=== PATIENT | female | born 1995 | race American Indian/Alaskan Native ===

== ENCOUNTER 2018-03-31 12:55 | Outpatient (CLI) | payer MEDICAID ==
[2018-03-31] MEDS ORDERED: LACTATED RINGERS 500 ML IV ONE (14:22)
[2018-03-31 14:31] VITALS: BP 104/63
[2018-03-31 14:45] LABS: Bilirubin,Urine NEG (Negative); Blood,Urine NEG (Negative); Color,Urine Straw (Yellow); Protein,Urine <15 mg/dL mg/dL (Negative); RBC,Urine < 1.0 /HPF (0.0-6.0); Urobilinogen,Urine < 2.0 mg/dL (<2.0)
== END 2018-03-31 15:07 | disposition home or self-care (01) ==
LOC: TRG 12:55
PROVIDERS: ATTEND Obstetrics & Gynecology
DX: O26.892 Other specified pregnancy related conditions, second trimester (principal); R10.9 Unspecified abdominal pain; Z3A.20 20 weeks gestation of pregnancy
CPT/HCPCS: 59025; 81001

== ENCOUNTER 2018-08-04 09:57 | Inpatient (IN) | payer MEDICAID ==
[2018-08-04] MEDS ORDERED: BRETHINE SUB-Q PRN (10:19)
[2018-08-04] MEDS ORDERED: APRESOLINE IV PRN (10:19)
[2018-08-04] MEDS ORDERED: SUBLIMAZE IV PRN (10:19)
[2018-08-04] MEDS ORDERED: XYLOCAINE 2% INFILTRATI ONE (10:19)
[2018-08-04] MEDS ORDERED: MINERAL OIL PO PRN (10:19)
[2018-08-04] MEDS ORDERED: MAGNESIUM SULFATE 4GM/100ML 4 GM/100 ML BAG IV ONE (10:19)
--- NOTE | 2018-08-04 10:26 | History and Physical Report ---
History of Present Illness Date of examination: 08/04/18 Chief complaint: Contractions History of present illness: EDC Calculations LMP: 08/13/2018 Past History : 1 Term Births: 0 Premature Births: 0 Living Children: 0 Para: 0 Mult. Births: 0 Prev : 0 Prev. attempt? 0 Aborta: 0 Elect. Ab: 0 Spont. 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 of genital herpes: no Partner hx. of genital herpes: no Rash, Viral, or Febrile illness since last LMP? no Varicella/Chicken Pox Status: Immunized TB Risk: no Genetic History Congenital Heart Defect: Mom: no Dad: no Fred Disease: Mom: no Dad: no Thalassemia Mom: no Dad: no Neural Tube Defect Mom: no Dad: no Down's Syndrome Mom: no Dad: no Bryce-Sachs Mom: no Dad: no Sickle Cell Disease/Trait Mom: no Dad: no Hemophilia Mom: no Dad: no Muscular Dystrophy Mom: no Dad: no Cystic Fibrosis Mom: no Dad: no [place] Chorea Mom: no Dad: no Mental Retardation Mom: no Dad: no Fragile X Mom: no Dad: no Other Genetic/Chromosomal Disorder Mom: no Dad: no Child w/other defect Mom: no Dad: no Enviromental Exposures Xray Exposure: no Medication, drug, or alcohol use since LMP: no Chemical/Other Exposure: no Exposure to Cat Liter: no Hx of Parvovirus (Fifth Disease): no Occupational Exposure to Children: none Active Medications (reviewed today): DIFLUCAN 150 MG ORAL TABLET (FLUCONAZOLE) 1 tab weekly Current Allergies (reviewed today): No known allergies Past History Past Medical History: other (see HPI) Past Surgical History: other (see HPI) 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 (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) - Obstetrical History Expected Date of Delivery: 08/13/18 Actual Gestation: 38 Week(s) 5 Day(s) : 1 Para: 0 Hx # Term Pregnancies: 0 Number of Pregnancies: 0 Spontaneous Abortions: 0 Induced : 0 Number of Living Children: 0 Medications and Allergies Allergies Allergy/AdvReac Type Severity Reaction Status Date / Time No Known Allergies Allergy Unverified 03/31/18 13:21 Review of Systems All systems: negative Eyes: blurred vision, other (seeing spots/flashing x 2 days) Neurological: headaches - Physical Exam Breasts: Positive: normal Cardiovascular: Regular rate Lungs: Positive: Clear to auscultation, Normal air movement Abdomen: Positive: normal appearance, soft Genitourinary (Female): Positive: normal external genitalia, normal perenium Vulva: both: normal Vagina: Positive: normal moisture Uterus: Positive: normal size, normal contour Anus/Rectum: Positive: normal perianal skin Extremities: Positive: normal - Obstetrical FHR: auscultation normal, category 1 Uterine Contraction Monitor Mode: Internal Cervical Dilatation: 6 Cervical Effacement Percentage: 100 station: 0 Uterine Contraction Frequency (min): 2-4 Uterine Contraction Duration: 60 Uterine Contraction Pattern: Regular Uterine Tone Measurement Phase: Contraction Uterine Contraction Intensity: Mild Results Result Diagrams: 08/04/18 10:40 08/04/18 10:40 All other labs normal. Assessment and Plan Patient admitted in labor, GBS NEG, b/p noted 194/113 in triage. Patient reports seeing flashes/spots x2 days and RICH x1 day. Ptl 118, AST/ALT normal. waiting on UA. Advised patient she has pre-eclampsia with severe symptoms. Advised she is at risk for having stroke/seizure d/t elevated b/p and only cure is delivery. Mag bolus is complete and is now infusing @ 2gm/hr for neuro protection and she received one dose of hydralizine x 1 dose. Current blood pressure is 161/86. She is refusing epidural (discussed pain increases b/p and the epidural is advised instead of multiple doses of IV sedation.) She is also refusing pitocin to expedite delivery while patient is stable at this time. pt requests for AROM - ISE and IUPC placed without difficulty. Bother functioning well. Patient's mother, sister and FOC are all at the bedside, very supportive. Admission orders in EMR. Dr. Lazaro has been consulted. - Patient Problems (1) 38 weeks gestation of Current Visit: Yes Status: Acute (2) Active labor at term Current Visit: Yes Status: Acute (3) Pre-eclampsia Current Visit: Yes Status: Acute Qualifiers: Trimester: third trimester Qualified Code(s): O14.93 - Unspecified pre- eclampsia, third trimester (4) Thrombocytopenia Current Visit: Yes Status: Acute
[2018-08-04] MEDS ORDERED: PITOCin/NS 20 UNIT/1000ML DRIP 20 UNITS/1,000 ML BAG IV SCH (11:00)
[2018-08-04] MEDS ORDERED: LACTATED RINGERS 1,000 ML IV SCH ×2 (11:00)
[2018-08-04] MEDS ORDERED: PITOCin/NS 30 UNIT/500ML 30 UNITS/500 ML BAG IV SCH (11:00)
[2018-08-04 11:03] LABS: Hematocrit 35.4 % (30.3-42.9); Hemoglobin 11.3 gm/dl (10.1-14.3); Mean Corpuscular HGB Conc 32 % (30-34); Mean Corpuscular Volume 79 fl (79-97); Platelet Count 118 K/mm3 (140-440); Red Blood Count 4.49 M/mm3 (3.65-5.03); Red Cell Distribution Width 19.3 % (13.2-15.2)
[2018-08-04 11:09] LABS: Mean Corpuscular Hemoglobin 25 pg (28-32)
[2018-08-04 11:22] LABS: Alanine Aminotransferase 18 units/L (7-56)
[2018-08-04] MEDS: MAGNESIUM SULFATE 40GM/1000ML 40 GM/1,000 ML BAG IV SCH (11:48)
[2018-08-04] MEDS ORDERED: APRESOLINE IV ONE (13:10)
--- NOTE | 2018-08-04 13:16 | Event Note ---
Date: 08/04/18 Pt is with BP in the sever ranges. Will give BP meds at this time. RN advised that she is to call provider with consecutive bps >160s/105s or higher and more meds would be given at this time. Pt currently is also on Magnesium Sulfate for sz protection. Report given to me by ANA Retana.
--- NOTE | 2018-08-04 14:28 | Progress Note ---
Assessment and Plan received call from nurse that patient was 10/100/+2, upon my exam patient had cervix all the way around that was not reducible. Patient turned to left side and encouraged to refrain from pushing as to not cause cervix to swell. some early variables noted, FHT CAT 1 - Patient Problems (1) 38 weeks gestation of Current Visit: Yes Status: Acute (2) Active labor at term Current Visit: Yes Status: Acute (3) Pre-eclampsia Current Visit: Yes Status: Acute Qualifiers: Trimester: third trimester Qualified Code(s): O14.93 - Unspecified pre- eclampsia, third trimester (4) Thrombocytopenia Current Visit: Yes Status: Acute Subjective - Subjective Date of service: 08/04/18 Principal diagnosis: IUP @ 38w5, Labor and pre-e, thrombocytopenia Interval history: EDC Calculations LMP: 08/13/2018 Past History : 1 Term Births: 0 Premature Births: 0 Living Children: 0 Para: 0 Mult. Births: 0 Prev : 0 Prev. attempt? 0 Aborta: 0 Elect. Ab: 0 Spont. 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 of genital herpes: no Partner hx. of genital herpes: no Rash, Viral, or Febrile illness since last LMP? no Varicella/Chicken Pox Status: Immunized TB Risk: no Genetic History Congenital Heart Defect: Mom: no Dad: no Fred Disease: Mom: no Dad: no Thalassemia Mom: no Dad: no Neural Tube Defect Mom: no Dad: no Down's Syndrome Mom: no Dad: no Bryce-Sachs Mom: no Dad: no Sickle Cell Disease/Trait Mom: no Dad: no Hemophilia Mom: no Dad: no Muscular Dystrophy Mom: no Dad: no Cystic Fibrosis Mom: no Dad: no [place] Chorea Mom: no Dad: no Mental Retardation Mom: no Dad: no Fragile X Mom: no Dad: no Other Genetic/Chromosomal Disorder Mom: no Dad: no Child w/other defect Mom: no Dad: no Enviromental Exposures Xray Exposure: no Medication, drug, or alcohol use since LMP: no Chemical/Other Exposure: no Exposure to Cat Liter: no Hx of Parvovirus (Fifth Disease): no Occupational Exposure to Children: none Active Medications (reviewed today): DIFLUCAN 150 MG ORAL TABLET (FLUCONAZOLE) 1 tab weekly Current Allergies (reviewed today): No known allergies Patient reports: loss of fluid, movement normal, contractions Objective - Vital Signs Vital Signs: Vital Signs - 12hr 08/04/18 08/04/18 08/04/18 10:15 10:20 10:42 Temperature 98.6 F Pulse Rate 74 85 74 Respiratory 20 20 Rate Blood Pressure 188/116 Blood Pressure 194/113 189/104 [Left] 08/04/18 08/04/18 08/04/18 11:16 11:25 11:34 Temperature Pulse Rate 82 93 H 88 Respiratory Rate Blood Pressure 196/91 152/91 167/104 Blood Pressure [Left] 08/04/18 08/04/18 08/04/18 11:45 11:54 12:04 Temperature Pulse Rate 94 H 92 H 99 H Respiratory Rate Blood Pressure 168/102 138/83 145/79 Blood Pressure [Left] 08/04/18 08/04/18 08/04/18 12:14 12:25 12:35 Temperature Pulse Rate 99 H 104 H 101 H Respiratory Rate Blood Pressure 155/86 161/86 144/85 Blood Pressure [Left] 08/04/18 08/04/18 08/04/18 12:45 12:56 13:05 Temperature Pulse Rate 127 H 100 H 86 Respiratory Rate Blood Pressure 172/105 163/100 160/92 Blood Pressure [Left] 08/04/18 08/04/18 08/04/18 13:14 13:24 13:34 Temperature Pulse Rate 92 H 112 H 110 H Respiratory Rate Blood Pressure 168/105 174/108 161/103 Blood Pressure [Left] 08/04/18 08/04/18 08/04/18 13:44 13:55 14:04 Temperature Pulse Rate 121 H 114 H 104 H Respiratory Rate Blood Pressure 153/88 151/72 139/69 Blood Pressure [Left] 08/04/18 14:15 Temperature Pulse Rate 104 H Respiratory Rate Blood Pressure 135/65 Blood Pressure [Left] - Exam Breasts: normal Cardiovascular: Regular rate Lungs: Clear to auscultation Abdomen: Present: normal appearance, soft Vulva: both: normal Uterus: Present: normal FHR: category 1 Uterine Contraction Monitor Mode: Internal Cervical Dilatation: 7.5 Cervical Effacement Percentage: 90 station: +2 Uterine Contraction Frequency (min): 4 Uterine Contraction Duration: 60 Uterine Contraction Pattern: Regular Uterine Tone Measurement Phase: Contraction Uterine Contraction Intensity: Moderate Extremities: edema Deep Tendon Reflex Grade: Normal but brisk +3 - Labs Labs: Abnormal Labs 08/04/18 08/04/18 10:40 10:40 MCH 25 L RDW 19.3 H Plt Count 118 L Lactate Dehydrogenase 432 H Laboratory Results - last 24 hr 08/04/18 08/04/18 08/04/18 10:40 10:40 10:40 WBC 8.1 RBC 4.49 Hgb 11.3 Hct 35.4 MCV 79 MCH 25 L MCHC 32 RDW 19.3 H Plt Count 118 L Creatinine 0.8 Estimated GFR > 60 Uric Acid AST ALT Lactate Dehydrogenase RPR Nonreactive Blood Type Antibody Screen 08/04/18 08/04/18 08/04/18 10:40 10:40 10:40 WBC RBC Hgb Hct MCV MCH MCHC RDW Plt Count Creatinine Estimated GFR Uric Acid 7.4 AST 37 ALT 18 Lactate Dehydrogenase 432 H RPR Blood Type B POSITIVE Antibody Screen Negative
[2018-08-04] MEDS ORDERED: NARCAN 2 MG/2 ML IV PRN (16:54)
--- NOTE | 2018-08-04 16:54 | Anesthesia Consultation ---
Anesthesia Consult and Med Hx Date of service: 08/04/18 - Airway Anesthetic Teeth Evaluation: Good ROM Head & Neck: Adequate Mental/Hyoid Distance: Adequate Mallampati Class: Class II Intubation Access Assessment: Good - Pulmonary Exam CTA: Yes - Cardiac Exam Cardiac Exam: No Murmur - Pre-Operative Health Status ASA Pre-Surgery Classification: ASA2 Proposed Anesthetic Plan: Epidural - Pulmonary Hx Asthma: No COPD: No Hx Pneumonia: No - Cardiovascular System Hx Hypertension: No - Central Nervous System Hx Seizures: No Hx Psychiatric Problems: No - Endocrine Hx Renal Disease: No Hx End Stage Renal Disease: No Hx Hypothyroidism: No Hx Hyperthyroidism: No - Hematic Hx Anemia: No Hx Sickle Cell Disease: No - Other Systems Hx Alcohol Use: No
[2018-08-04] MEDS ORDERED: fentaNYL-BUPIV 2 MCG/ML-0.125% 200 MCG/100 ML BAG EPIDURAL SCH (17:00)
[2018-08-04 18:17] LABS: Bilirubin,Urine NEG (Negative); Blood,Urine SM (Negative); Color,Urine Straw (Yellow); Urobilinogen,Urine < 2.0 mg/dL (<2.0)
[2018-08-04] MEDS ORDERED: LANSINOH TP PRN (19:49)
[2018-08-04] MEDS ORDERED: DULCOLAX PR PRN (19:49)
[2018-08-04] MEDS ORDERED: TYLENOL PO PRN (19:49)
[2018-08-04] MEDS ORDERED: ZOFRAN IV PRN (19:49)
[2018-08-04] MEDS ORDERED: BENADRYL PO PRN (19:49)
[2018-08-04] MEDS ORDERED: SODIUM CHLORIDE FLUSH SYRINGE 10 ML IV SCH (20:00)
--- NOTE | 2018-08-04 20:08 | Procedure Note ---
OB Delivery Note - Delivery Date of Delivery: 08/04/18 (late entry) Surgeon: JENNIFER SOUTH Estimated blood loss: other (400cc) - Vaginal Delivery presentation: vertex Delivery position: OP (direct) Intrapartum events: mult.variable deceleratio (deep at times going to the60s to 90s) Delivery induction: none Delivery augmentation: rupture of membranes, pitocin Delivery monitor: external FHT, external uterine, internal FHT, internal uterine Route of delivery: Delivery placenta: spontaneous Delivery cord: nuchal cord (times one tight clamped x 2 and easily reduced) Episiotomy: midline Delivery laceration: 3rd degree (partial 3rd degree extension) Delivery repair: vicryl (3-0 ) Anesthesia: intravenous, epidural Delivery comments: Delivery as above. delivered direct OP and cord was clamped and cut as stated above. Infant taken to [place] warm with waiting resp and NICU staff. MLE with partial third degree extension repaired in usual fashion. Placenta delivered spontaneously intact. Mother and infant stable in LDR. - Infant A at 1 minute: 8 at 5 minutes: 9 Gender: Male (5lbs 11oz)
[2018-08-04] MEDS: NORCO 5/325 PO PRN (21:45)
[2018-08-04] MEDS: TUCKS PAD TP PRN (21:49)
[2018-08-05] MEDS: MOTRIN PO SCH ×4 (00:15→20:03)
[2018-08-05] MEDS ORDERED: PITOCin/NS 20 UNIT/1000ML DRIP 20 UNITS/1,000 ML BAG IV SCH (01:00)
[2018-08-05] MEDS: MAGNESIUM SULFATE 40GM/1000ML 40 GM/1,000 ML BAG IV SCH (05:19)
[2018-08-05 08:32] LABS: Hematocrit 26.3 % (30.3-42.9); Hemoglobin 8.6 gm/dl (10.1-14.3)
--- NOTE | 2018-08-05 10:18 | Progress Note ---
Assessment and Plan patient doing well, denies RICH, visual changes or epigastric pain. Fundus firm, lochia scant. post del H&H 8.6/26.3 (asymptomatic, anemia from blood loss, acute.) Adequate urine output in samuels, b/p 140-150's/80-90's. Last mag level 7.4, mag sulfate decreased to 1gm/hr. will continue mag sulfate until 1999. Will start labetalol 200mg BID. well. Will continue pathway. - Patient Problems (1) Pre-eclampsia Current Visit: Yes Status: Acute Qualifiers: Trimester: third trimester Qualified Code(s): O14.93 - Unspecified pre- eclampsia, third trimester (2) Thrombocytopenia Current Visit: Yes Status: Acute (3) (spontaneous vaginal delivery) Current Visit: Yes Status: Acute (4) Anemia associated with acute blood loss Current Visit: Yes Status: Acute Subjective - Subjective Date of service: 08/05/18 Principal diagnosis: day #1 s/p ; pre-e Interval history: EDC Calculations LMP: 08/13/2018 Past History : 1 Term Births: 0 Premature Births: 0 Living Children: 0 Para: 0 Mult. Births: 0 Prev : 0 Prev. attempt? 0 Aborta: 0 Elect. Ab: 0 Spont. 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 of genital herpes: no Partner hx. of genital herpes: no Rash, Viral, or Febrile illness since last LMP? no Varicella/Chicken Pox Status: Immunized TB Risk: no Genetic History Congenital Heart Defect: Mom: no Dad: no Fred Disease: Mom: no Dad: no Thalassemia Mom: no Dad: no Neural Tube Defect Mom: no Dad: no Down's Syndrome Mom: no Dad: no Bryce-Sachs Mom: no Dad: no Sickle Cell Disease/Trait Mom: no Dad: no Hemophilia Mom: no Dad: no Muscular Dystrophy Mom: no Dad: no Cystic Fibrosis Mom: no Dad: no [place] Chorea Mom: no Dad: no Mental Retardation Mom: no Dad: no Fragile X Mom: no Dad: no Other Genetic/Chromosomal Disorder Mom: no Dad: no Child w/other defect Mom: no Dad: no Enviromental Exposures Xray Exposure: no Medication, drug, or alcohol use since LMP: no Chemical/Other Exposure: no Exposure to Cat Liter: no Hx of Parvovirus (Fifth Disease): no Occupational Exposure to Children: none Active Medications (reviewed today): DIFLUCAN 150 MG ORAL TABLET (FLUCONAZOLE) 1 tab weekly Current Allergies (reviewed today): No known allergies Patient reports: appetite normal, pain well controlled, ambulating normally, no nauseated [facility]: doing well, nursing well Objective - Vital Signs Latest vital signs: Vital Signs Temp Pulse Resp BP BP Pulse Ox 08/05/18 06:21 87 143/81 97 08/05/18 05:07 18 08/05/18 04:32 97.9 F 86 18 153/90 97 08/05/18 04:07 20 08/05/18 02:26 87 150/84 08/05/18 00:24 98.4 F 87 153/96 08/05/18 00:15 18 08/04/18 22:45 18 08/04/18 21:45 20 08/04/18 21:23 98.6 F 104 H 20 151/94 151/94 98 08/04/18 20:45 93 H 159/81 08/04/18 20:37 104 H 215/89 08/04/18 20:20 97.6 F 18 08/04/18 19:33 102 H 155/99 08/04/18 19:03 108 H 144/67 08/04/18 18:52 41 L 90 08/04/18 18:50 117 H 100 08/04/18 18:45 110 H 100 08/04/18 18:40 109 H 100 08/04/18 18:35 117 H 99 08/04/18 18:33 129 H 136/71 08/04/18 18:30 131 H 99 08/04/18 18:05 82 153/81 08/04/18 17:35 83 136/77 08/04/18 17:29 90 135/78 08/04/18 17:24 99 H 129/82 09/14/18 17:18 90 141/73 08/04/18 17:13 96 H 121/58 18 17:08 99 H 124/65 18 17:03 100 H 119/68 18 16:58 103 H 137/68 18 16:53 98 H 141/71 08/04/18 16:44 100 H 154/90 18 16:40 104 H 156/91 08/04/18 16:34 106 H 150/95 08/04/18 16:29 101 H 156/90 08/04/18 16:14 105 H 150/97 08/04/18 16:04 108 H 158/96 08/04/18 15:54 96 H 150/89 08/04/18 15:44 99 H 145/82 08/04/18 15:35 96 H 151/87 08/04/18 15:24 98 H 144/92 08/04/18 15:14 89 135/69 08/04/18 15:04 100 H 143/74 08/04/18 14:54 111 H 142/70 08/04/18 14:44 110 H 135/63 18 14:34 105 H 133/65 18 14:25 105 H 135/65 08/04/18 14:15 104 H 135/65 08/04/18 14:04 104 H 139/69 08/04/18 13:55 114 H 151/72 08/04/18 13:44 121 H 153/88 08/04/18 13:34 110 H 161/103 08/04/18 13:24 112 H 174/108 08/04/18 13:14 92 H 168/105 08/04/18 13:05 86 160/92 08/04/18 12:56 100 H 163/100 08/04/18 12:45 127 H 172/105 08/04/18 12:35 101 H 144/85 08/04/18 12:25 104 H 161/86 08/04/18 12:14 99 H 155/86 08/04/18 12:04 99 H 145/79 08/04/18 11:54 92 H 138/83 08/04/18 11:45 94 H 168/102 08/04/18 11:34 88 167/104 08/04/18 11:25 93 H 152/91 08/04/18 11:16 82 196/91 08/04/18 10:42 74 188/116 08/04/18 10:20 85 20 189/104 08/04/18 10:15 98.6 F 74 20 194/113 Intake and Output 08/04/18 08/05/18 08/05/18 23:59 07:59 15:59 Intake Total 777.917 Output Total 100 1900 Balance -100 -1122.083 Intake: IV 437.917 MAGNESIUM SULFATE 40GM/ 437.917 1000ML 40 gm In 1,000 ml @ 1 GM/HR 25 mls/hr IV DIRECT OMAR Rx#:[id number] Oral 240 Intake, Free Water 100 Output: Urine 100 1900 Indwelling Catheter 100 1900 Other: Total, Intake Amount 240 Total, Output Amount 100 1000 Estimated Blood Loss 400 - Exam Breasts: Present: normal, Cardiovascular: Present: Regular rate Lungs: Present: Clear to auscultation, Normal air movement Abdomen: Present: normal appearance, soft Vulva: both: normal Uterus: Present: normal, firm, fundal height at umbilicus Extremities: Present: normal Deep Tendon Reflex Grade: Normal +2 Incision: Present: normal, dry, intact - Labs Labs: Abnormal lab results 08/04/18 08/04/18 08/04/18 Range/Units 10:40 10:40 17:44 Hgb (10.1-14.3) gm/dl Hct (30.3-42.9) % MCH 25 L (28-32) pg RDW 19.3 H (13.2-15.2) % Plt Count 118 L (140-440) K/mm3 Magnesium 6.10 H (1.7-2.3) mg/dL Lactate Dehydrogenase 432 H (91-180) units/L 08/04/18 08/05/18 08/05/18 Range/Units 22:14 05:23 08:07 Hgb (10.1-14.3) gm/dl Hct (30.3-42.9) % MCH (28-32) pg RDW (13.2-15.2) % Plt Count (140-440) K/mm3 Magnesium 6.40 H 7.60 H 7.40 H (1.7-2.3) mg/dL Lactate Dehydrogenase (91-180) units/L 08/05/18 Range/Units 08:07 Hgb 8.6 L (10.1-14.3) gm/dl Hct 26.3 L D (30.3-42.9) % MCH (28-32) pg RDW (13.2-15.2) % Plt Count (140-440) K/mm3 Magnesium (1.7-2.3) mg/dL Lactate Dehydrogenase (91-180) units/L
[2018-08-05] MEDS: NORMODYNE PO SCH ×2 (11:00→21:40)
[2018-08-05] MEDS ORDERED: NACL 0.9% 1000 ML 1,000 ML IV SCH (14:00)
[2018-08-05] MEDS ORDERED: NACL 0.9% 1000 ML 1,000 ML ONE (15:52)
[2018-08-05] MEDS: NORCO 5/325 PO PRN (15:55)
[2018-08-05] MEDS: FEOSOL PO SCH (21:38)
[2018-08-06] MEDS: NORCO 5/325 PO PRN (05:37)
[2018-08-06] MEDS: MOTRIN PO SCH ×2 (05:37→13:01)
[2018-08-06] MEDS: NORMODYNE PO SCH (10:47)
[2018-08-06] MEDS: FEOSOL PO SCH (10:47)
--- NOTE | 2018-08-06 12:24 | Discharge Summary ---
Providers - Providers Date of Admission: 08/04/18 09:58 Date of discharge: 08/06/18 (desires d/c home today) Attending physician: JENNIFER SOUTH 08/04/18 19:51 Consult to [employer]er [CONS] Routine Reason For Exam: assistance with , SNS Primary care physician: JENNIFER SOUTH Hospitalization Reason for admission: Labor and pre-eclampsia Condition: Good Pertinent studies: post delivery H&H 8.6/26.3 - asymptomatic anemia from acute blood loss. Procedures: vaginal Hospital course: vaginal and course complicated by pre-e Disposition: DC-01 TO HOME OR SELFCARE - Discharge Diagnoses (1) Pre-eclampsia Status: Acute Qualifiers: Trimester: third trimester Qualified Code(s): O14.93 - Unspecified pre- eclampsia, third trimester (2) Thrombocytopenia Status: Acute (3) (spontaneous vaginal delivery) Status: Acute (4) Anemia associated with acute blood loss Status: Acute Core Measure Documentation - Palliative Care Palliative Care/ Comfort Measures: Not Applicable - Core Measures Any of the following diagnoses?: none Exam - Constitutional Vitals: Temp Pulse Resp BP Pulse Ox 98.7 F 78 16 129/76 97 08/06/18 00:20 08/06/18 00:20 08/06/18 00:20 08/06/18 00:20 08/05/18 06:21 General appearance: Present: no acute distress, well-nourished - EENT Eyes: Present: PERRL ENT: hearing intact, clear oral mucosa - Neck Neck: Present: supple, normal ROM - Respiratory Respiratory effort: normal Respiratory: bilateral: CTA - Cardiovascular Heart Sounds: Present: S1 & S2. Absent: rub, click - Extremities Extremities: pulses symmetrical, No edema Peripheral Pulses: within normal limits - Abdominal General gastrointestinal: Present: soft, non-tender, non-distended, normal bowel sounds Female genitourinary: Present: normal - Integumentary Integumentary: Present: clear, warm, dry - Musculoskeletal Musculoskeletal: gait normal, strength equal bilaterally - Psychiatric Psychiatric: appropriate mood/affect, intact judgment & insight - Neurologic Neurologic: CNII-XII intact, moves all extremities - Additional findings Additional findings: , lochia scant, fundus firm, denies RICH, visual changes or epigastric pain. Plan Activity: no restrictions Diet: regular Follow up with: JENNIFER SOUTH MD [Primary Care Provider] - 7 Days (Congratulations! Please call [phone] to schedule your son's circumcision and your blood pressure check in 1 week. Bring EMLA cream to your son's visit and await further teaching. Call for any questions or concerns. ) Prescriptions: Ferrous Sulfate [Feosol 325 MG tab] 325 mg PO BID #90 tablet Ibuprofen [Motrin 800 MG tab] 800 mg PO Q8HR PRN #30 tablet PRN Reason: Pain Labetalol [Normodyne TAB] 200 mg PO BID #60 tablet Lidocain2.5%/Prilocai2.5% [Emla] 5 gm TP ONCE PRN #1 tube PRN Reason: Pain
[2018-08-06] MEDS: TUCKS PAD TP PRN (13:00)
[2018-08-06 20:01] VITALS: BP 132/81
== END 2018-08-06 14:10 | disposition home or self-care (01) | DRG 988 ==
LOC: TRG 09:57 → LD 09:58 → TRG 10:43 → OB 20:58
PROVIDERS: ADMIT Obstetrics & Gynecology; ATTEND Obstetrics & Gynecology
PROC: 10E0XZZ Delivery of Products of Conception, External Approach (ICD-10-PCS; principal; 2018-08-04)
PROC: 0DQR0ZZ Repair Anal Sphincter, Open Approach (ICD-10-PCS; 2018-08-04)
PROC: 10907ZC Drainage of Amniotic Fluid, Therapeutic from Products of Conception, Via Natural or Artificial Opening (ICD-10-PCS; 2018-08-04)
PROC: 10H07YZ Insertion of Other Device into Products of Conception, Via Natural or Artificial Opening (ICD-10-PCS; 2018-08-04)
PROC: 0W8NXZZ Division of Female Perineum, External Approach (ICD-10-PCS; 2018-08-04)
PROC: 3E0R3BZ Introduction of Anesthetic Agent into Spinal Canal, Percutaneous Approach (ICD-10-PCS; 2018-08-04)
PROC: 00HU33Z Insertion of Infusion Device into Spinal Canal, Percutaneous Approach (ICD-10-PCS; 2018-08-04)
DX: O14.94 Unspecified pre-eclampsia, complicating childbirth (principal); O70.20 Third degree perineal laceration during delivery, unspecified; O99.12 Other diseases of the blood and blood-forming organs and certain disorders involving the immune mechanism complicating childbirth; D62 Acute posthemorrhagic anemia; Z37.0 Single live birth; J45.909 Unspecified asthma, uncomplicated; O99.52 Diseases of the respiratory system complicating childbirth; Z3A.38 38 weeks gestation of pregnancy; D69.6 Thrombocytopenia, unspecified; O90.81 Anemia of the puerperium; O76 Abnormality in fetal heart rate and rhythm complicating labor and delivery; O69.1XX0 Labor and delivery complicated by cord around neck, with compression, not applicable or unspecified
CPT/HCPCS: 36415; 81001; 82565; 83615; 83735; 84450; 84460; 84550; 85014; 85018; 85027; 86592; 86850; 86900; 86901; 88307; J0360; J2590; J3010; J3475; J7030; J7120